=== PATIENT | male | born 1990 | race American Indian/Alaskan Native ===

== ENCOUNTER 2017-05-10 21:48 | Emergency (ER) | payer SELFPAY | END 2017-05-10 22:23 | disposition left against medical advice (07) | LOC: ED 21:48 | DX: R03.0 Elevated blood-pressure reading, without diagnosis of hypertension (principal); Z53.21 Procedure and treatment not carried out due to patient leaving prior to being seen by health care provider ==

== ENCOUNTER 2018-09-27 18:43 | Emergency (ER) | payer SELFPAY ==
[2018-09-27] MEDS ORDERED: NORCO 5/325 PO STA (22:22)
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
[2018-09-27 22:41] VITALS: BP 122/72
== END 2018-09-27 22:40 | disposition home or self-care (01) ==
LOC: ED 18:43
DX: M54.5 Low back pain (principal); F17.200 Nicotine dependence, unspecified, uncomplicated
CPT/HCPCS: 99282